=== PATIENT | male | born 1980 | race Caucasian/White ===

== ENCOUNTER 2017-02-20 16:29 | Emergency (ER) | payer OTHER ==
[2017-02-20 16:33] VITALS: BP 164/94
[2017-02-20] MEDS ORDERED: Sodium Chloride 0.9% 1,000 ML IV ONE (16:37)
[2017-02-20] MEDS ORDERED: predniSONE 20 MG Tab PO ONE (16:46)
[2017-02-20] MEDS ORDERED: valACYclovir 500 MG Tab PO ONE (16:47)
[2017-02-20 17:00] LABS: CHLORIDE,CL 108 mmol/L (98-110); SODIUM,NA 141 mmol/L (136-146)
--- NOTE | 2017-02-20 18:14 | EDM.PDOC ---
ED HPI GENERAL MEDICAL PROBLEM - General Chief Complaint: Neuro Symptoms/Deficits Stated Complaint: UNK Time Seen by Provider: 02/20/17 18:06 Source of Information: Reports: Patient History Limitations: Reports: No Limitations - History of Present Illness INITIAL COMMENTS - FREE TEXT/NARRATIVE: History of present illness: [36-year-old male presenting with unilateral basal facial weakness area patient has some right-sided facial drooping. Patient indicates it started this morning and that his sister indicated that if he didn't have improvement but he should come in to be evaluated.] Review of systems: As per history of present illness and below otherwise all systems reviewed and negative. Past medical history: As per history of present illness and as reviewed below otherwise noncontributory. Surgical history: As per history of present illness and as reviewed below otherwise noncontributory. Social history: No reported history of drug or alcohol abuse. Family history: As per history of present illness and as reviewed below otherwise noncontributory. Physical exam: HEENT: Atraumatic, normocephalic, pupils reactive, negative for conjunctival pallor or scleral icterus, mucous membranes moist, throat clear, neck supple, nontender, trachea midline. Lungs: Clear to auscultation, breath sounds equal bilaterally, chest nontender. Heart: S1S2, regular, negative for clicks, rubs, or JVD. Abdomen: Soft, nondistended, nontender. Negative for masses or hepatosplenomegaly. Negative for costovertebral tenderness. Pelvis: Stable nontender. Genitourinary: Deferred. Rectal: Deferred. Extremities: Atraumatic, negative for cords or calf pain. Neurovascular unremarkable. Neuro: Awake, alert, oriented. Right-sided facial droop, with equal eyebrow raise. Stroke score of 1. Cerebellum unremarkable. Motor and sensory unremarkable throughout. Exam nonfocal. Patient hasn't moderate score deficit on the House-Brackman scale for facial nerve dysfunction. This is consistent with acute onset of Chavez's palsy. Patient indicates he also has familial history of Chavez's palsy as well. Diagnostics: [] Therapeutics: [Prednisone, valacyclovir] Impression: [[place] Palsy] Plan: [Prednisone, Valacyclovir prescriptions Followup with primary care provider] Definitive disposition and diagnosis as appropriate pending reevaluation and review of above. - Related Data Allergies Allergy/AdvReac Type Severity Reaction Status Date / Time No Known Allergies Allergy Verified 02/20/17 16:34 Home Meds: Home Meds predniSONE [Prednisone] 80 mg PO DAILY #7 tablet 02/20/17 [Rx] valACYclovir HCl [valACYclovir] 1,000 mg PO TID #21 tablet 02/20/17 [Rx] Past Medical History HEENT History: Reports: Impaired Vision Cardiovascular History: Reports: None Respiratory History: Reports: Asthma Gastrointestinal History: Reports: None Genitourinary History: Reports: None Musculoskeletal History: Reports: None Neurological History: Reports: None Psychiatric History: Reports: Anxiety Endocrine/Metabolic History: Reports: None Hematologic History: Reports: None Immunologic History: Reports: None Oncologic (Cancer) History: Reports: None Dermatologic History: Reports: None - Infectious Disease History Infectious Disease History: Reports: None - Past Surgical History Head Surgeries/Procedures: Reports: None Social & Family History - Family History Family Medical History: Noncontributory - Tobacco Use Smoking Status *Q: Never Smoker Second Hand Smoke Exposure: No - Caffeine Use Caffeine Use: Reports: Coffee - Recreational Drug Use Recreational Drug Use: No ED ROS GENERAL - Review of Systems Review Of Systems: See Below (See history of present illness) ED EXAM, GENERAL - Physical Exam Exam: See Below (History of present illness) Course - Vital Signs Last Recorded V/S: Last Vital Signs Temp 36.7 C 02/20/17 16:30 Pulse 115 H 02/20/17 16:30 Resp 16 02/20/17 16:30 BP 164/94 H 02/20/17 16:30 Pulse Ox 99 02/20/17 16:30 - Orders/Labs/Meds Labs: Laboratory Tests 02/20/17 02/20/17 Range/Units 16:23 16:23 WBC 14.97 H (4.0-11.0) K/uL RBC 5.44 (4.50-5.90) M/uL Hgb 15.6 (13.0-17.0) g/dL Hct 45.8 (38.0-50.0) % MCV 84.2 (80.0-98.0) fL MCH 28.7 (27.0-32.0) pg MCHC 34.1 (31.0-37.0) g/dL RDW Std Deviation 40.1 (28.0-62.0) fl RDW Coeff of [place] 13 (11.0-15.0) % Plt Count 272 (150-400) K/uL MPV 10.50 (7.40-12.00) fL Neut % (Auto) 58.3 (48.0-80.0) % Lymph % (Auto) 31.6 (16.0-40.0) % [place] % (Auto) 5.4 (0.0-15.0) % Eos % (Auto) 4.3 (0.0-7.0) % Baso % (Auto) 0.4 (0.0-1.5) % Neut # (Auto) 8.7 H (1.4-5.7) K/uL Lymph # (Auto) 4.7 H (0.6-2.4) K/uL [place] # (Auto) 0.8 (0.0-0.8) K/uL Eos # (Auto) 0.7 (0.0-0.7) K/uL Baso # (Auto) 0.1 (0.0-0.1) K/uL Nucleated RBC % 0.0 /100WBC Nucleated RBCs # 0 K/uL Sodium 141 (136-146) mmol/L Potassium 3.6 (3.5-5.1) mmol/L Chloride 108 (98-110) mmol/L Carbon Dioxide 20 L (21-31) mmol/L BUN 16 (6.0-23.0) mg/dL Creatinine 1.0 (0.6-1.5) mg/dL Est Cr Clr Drug Dosing 110.86 mL/min Estimated GFR (MDRD) > 60.0 ml/min Glucose 96 (60-110) mg/dL Calcium 9.7 (8.8-10.8) mg/dL Total Bilirubin 0.6 (0.1-1.5) mg/dL AST 42 H (5-40) IU/L ALT 65 H (8-54) IU/L Alkaline Phosphatase 64 (40-150) Total Protein 8.0 (6.0-8.0) g/dL Albumin 4.6 (3.5-5.0) g/dL Globulin 3.4 (2.0-3.5) g/dL Albumin/Globulin Ratio 1.4 (1.3-2.8) Meds: Medications Discontinued Medications Generic Name Dose Route Start Last Admin Trade Name [place] PRN Reason Stop Dose Admin Sodium Chloride 1,000 mls @ 999 mls/hr 02/20/17 16:37 02/20/17 16:51 Normal Saline IV 02/20/17 17:37 999 mls/hr STAT ONE Administration Prednisone 80 mg 02/20/17 16:46 02/20/17 18:02 Prednisone PO 02/20/17 16:47 80 mg ONETIME ONE Administration Valacyclovir HCl 1,000 mg 02/20/17 16:47 02/20/17 18:03 Valtrex PO 02/20/17 16:48 1,000 mg ONETIME ONE Administration Departure - Departure Time of Disposition: 18:28 Disposition: Home, Self-Care 01 Condition: good Clinical Impression: Chavez's palsy - Discharge Information Prescriptions: predniSONE [Prednisone] 80 mg PO DAILY #7 tablet valACYclovir HCl [valACYclovir] 1,000 mg PO TID #21 tablet Forms: ED Department Discharge Additional Instructions: The following information is given to patients seen in the emergency department who are being discharged to home. This information is to outline your options for follow-up care. We provide all patients seen in our emergency department with a follow-up referral. The need for follow-up, as well as the timing and circumstances, are variable depending upon the specifics of your emergency department visit. If you don't have a primary care physician on staff, we will provide you with a referral. We always advise you to contact your personal physician following an emergency department visit to inform them of the circumstance of the visit and for follow-up with them and/or the need for any referrals to a consulting specialist. The emergency department will also refer you to a specialist when appropriate. This referral assures that you have the opportunity for follow-up care with a specialist. All of these measure are taken in an effort to provide you with optimal care, which includes your follow-up. Under all circumstances we always encourage you to contact your private physician who remains a resource for coordinating your care. When calling for follow-up care, please make the office aware that this follow-up is from your recent emergency room visit. If for any reason you are refused follow-up, please contact the [facility] Emergency Department at and asked to speak to the emergency department charge nurse. Take medication as directed Followup with PCP in one to 2 days return to ED as needed as discussed
== END 2017-02-20 18:54 | disposition home or self-care (01) ==
LOC: MW.ED 16:29
DX: G51.0 Bell's palsy (principal); J45.909 Unspecified asthma, uncomplicated; Z79.899 Other long term (current) drug therapy
CPT/HCPCS: 36415; 80053; 85025; 96360; 99284; A9270; J7040

== ENCOUNTER 2022-12-06 21:21 | Emergency (ER) | payer BC ==
[2022-12-06 23:59] LABS: C. TRACHOMATIS BY PCR NOT DETECTED; N. GONORRHOEAE BY PCR NOT DETECTED
[2022-12-07 01:48] VITALS: BP 129/90; PULSE 71
== END 2022-12-07 00:49 | disposition home or self-care (01) ==
LOC: MW.ED 21:21
DX: I86.1 Scrotal varices (principal); N43.3 Hydrocele, unspecified; J45.909 Unspecified asthma, uncomplicated; Z91.012 Allergy to eggs; Z79.899 Other long term (current) drug therapy
CPT/HCPCS: 76870; 76870-26; 81001; 87491; 87591; 93976; 93976-26; 99284

== ENCOUNTER 2024-05-11 20:00 | Emergency (ER) | payer BC ==
[2024-05-11 20:32] LABS: HEMATOCRIT 39.4 % (42.0-52.0); HEMOGLOBIN 13.1 g/dL (14.0-18.0); MEAN CORPUSCULAR HEMOGLOBIN 27.3 pg (28.0-32.0); MEAN CORPUSCULAR HGB CONC 33.2 g/dL (32.0-36.0); MEAN CORPUSCULAR VOLUME 82.1 fL (83.0-99.0); MEAN PLATELET VOLUME 10.6 fL (9.4-12.4); PLATELET COUNT,PLT 263 K/uL (150-400); WHITE BLOOD CELL COUNT,WBC 12.75 K/uL (3.9-11.3)
[2024-05-11] MEDS: Aspirin 81 MG Tab.Chew PO STA (20:32)
[2024-05-11 20:43] LABS: PTT,PARTIAL THROMBOPLSTIN TIME 32.8 SEC (23.9-30.7)
[2024-05-11 20:56] LABS: BASOPHILS ABSOLUTE MAN 0.13 K/uL (0.00-0.20); BASOPHILS PERCENT MAN 1 % (0-1); EOSINOPHILS ABSOLUTE MAN 0.64 K/uL (0.00-0.45); EOSINOPHILS PERCENT MAN 5 % (0-6); LYMPHOCYTES ABSOLUTE MAN 4.46 K/uL (1.00-4.80); LYMPHOCYTES PERCENT MAN 35 % (24-44); MONOCYTES ABSOLUTE MAN 0.13 K/uL (0.00-0.80); MONOCYTES PERCENT MAN 1 % (0-8); SEG NEUTROPHILS PERCENT MAN 58 % (41-71)
[2024-05-11 21:02] LABS: A/G RATIO 1.1 (0.9-1.6); ALBUMIN 3.5 g/dL (3.4-5.0); BILIRUBIN TOTAL 0.3 mg/dL (0.2-1.0); CALCIUM 8.5 mg/dL (8.5-10.1); CARBON DIOXIDE,CO2 25.3 mmol/L (21.0-32.0); CREATININE 1.2 mg/dL (0.8-1.3); EST CRCL DRUG DOSING (CG) 88.92 mL/min; POTASSIUM,K 3.9 mmol/L (3.5-5.1); PROTEIN TOTAL,TP 6.8 g/dL (6.4-8.2)
[2024-05-11 22:22] VITALS: BP 118/71; PULSE 84
== END 2024-05-11 22:22 | disposition home or self-care (01) ==
LOC: MW.ED 20:00
DX: R07.89 Other chest pain (principal); I10 Essential (primary) hypertension; Z75.8 Other problems related to medical facilities and other health care; Z79.899 Other long term (current) drug therapy; Z91.012 Allergy to eggs
CPT/HCPCS: 36415; 71046; 80053; 83690; 84484; 85025; 85610; 85730; 93005; 99285; A9270; 93010

== ENCOUNTER 2024-07-17 17:16 | Emergency (ER) | payer BC ==
[2024-07-17] MEDS: Sodium Chloride 0.9% 1,000 ML IV ONE (17:48)
[2024-07-17 17:50] LABS: BASOPHILS PERCENT AUTO 0.7 % (0.0-1.0); EOSINOPHILS ABSOLUTE AUTO 0.64 K/uL (0.00-0.45); EOSINOPHILS PERCENT AUTO 4.4 % (0.0-6.0); HEMOGLOBIN 15.2 g/dL (14.0-18.0); IMMATURE GRAN ABSOLUTE AUTO 0.05 K/uL (0.00-0.05); IMMATURE GRAN PERCENT AUTO 0.3 % (0.0-0.4); LYMPHOCYTES ABSOLUTE AUTO 4.44 K/uL (1.00-4.80); LYMPHOCYTES PERCENT AUTO 30.5 % (24.0-44.0); MEAN CORPUSCULAR HEMOGLOBIN 26.3 pg (28.0-32.0); MEAN CORPUSCULAR HGB CONC 32.3 g/dL (32.0-36.0); MEAN CORPUSCULAR VOLUME 81.5 fL (83.0-99.0); MEAN PLATELET VOLUME 10.2 fL (9.4-12.4); MONOCYTES ABSOLUTE AUTO 1.13 K/uL (0.00-0.80); MONOCYTES PERCENT AUTO 7.8 % (0.0-8.0); NEUTROPHILS ABSOLUTE AUTO 8.18 K/uL (1.80-7.70); NEUTROPHILS PERCENT AUTO 56.3 % (41.0-71.0); PLATELET COUNT,PLT 307 K/uL (150-400); RED BLOOD CELL COUNT 5.77 M/uL (4.52-5.90); WHITE BLOOD CELL COUNT,WBC 14.54 K/uL (3.9-11.3)
[2024-07-17 18:05] LABS: INR 1.14 (0.86-1.11)
[2024-07-17 18:12] LABS: A/G RATIO 0.9 (0.9-1.6); ALBUMIN 3.7 g/dL (3.4-5.0); BILIRUBIN TOTAL 0.7 mg/dL (0.2-1.0); CALCIUM 9.1 mg/dL (8.5-10.1); CARBON DIOXIDE,CO2 24.5 mmol/L (21.0-32.0); CREATININE 0.9 mg/dL (0.8-1.3); EST CRCL DRUG DOSING (CG) 117.36 mL/min; POTASSIUM,K 3.6 mmol/L (3.5-5.1); PROTEIN TOTAL,TP 7.8 g/dL (6.4-8.2)
[2024-07-17 19:00] VITALS: BP 139/75; PULSE 86
== END 2024-07-17 18:59 | disposition home or self-care (01) ==
LOC: MW.ED 17:16
DX: K62.5 Hemorrhage of anus and rectum (principal); I10 Essential (primary) hypertension; J45.909 Unspecified asthma, uncomplicated; Z91.012 Allergy to eggs; Z79.899 Other long term (current) drug therapy
CPT/HCPCS: 36415; 80053; 85025; 85610; 96360; 99284; J7030